=== PATIENT | male | born 1945 | race Caucasian/White ===

== ENCOUNTER → 2021-12-16 | Outpatient (CLI) | payer MEDICARE, SELFPAY ==
[2021-12-16 12:28] LABS: Absolute Lymphocyte Count 1.43 X10^3/uL (0.83-4.51); Absolute Neutrophil Count 2.8 X10^3/uL (2.0-7.7); Basophil# 0.07 X10^3/uL; Basophil% 1.5 % (0-1); Eosinophil# 0.06 X10^3/uL; Eosinophils% 1.3 % (0-5); Hemoglobin 12.9 g/dL (13.0-16.5); Lymphocyte # 1.43 X10^3/ul (0.83-4.51); Mean Corp Hgb Conc 32.3 g/dL (32-36); Mean Platelet Vol. 9.9 fl (6.2-12.0); Monocyte# 0.45 X10^3/uL; Monocyte% 9.4 % (0-10); NRBC Flagged by Analyzer 0 % (0-5); Neutrophil # 2.75 X10^3/uL (2.7-7.7); Neutrophil % 57.6 % (47-70); Platelet Count 230 K/mm3 (150-450); RBC Distribution Width CV 13.9 % (11.6-14.6); RBC Distribution Width SD 47.3 fl (35.1-43.9); White Blood Count 4.8 K/mm3 (4.4-11.0)
[2021-12-16 12:35] LABS: Color, Urine Yellow (Yellow); Glucose, Dipstick Normal (Normal); Ketone-Dipstick 5 mg/dl (Negative); Leukocyte Esterase-Dipstick 25 /ul (Negative); Nitrite-Dipstick Negative (Negative); Occult Blood-Urine 150 /ul (Negative); Protein-Dipstick 30 mg/dl (Negative); Urine Bilirubin Dipstick Negative (Negative); Urine Clarity Sl. Cloudy (Clear); Urine Urobilinogen 1 mg/dl (Normal)
[2021-12-16 12:41] LABS: AST(SGOT) 21 U/L (15-37); Alanine Aminotransfer ALT/SGPT 17 U/L (16-61); Albumin, Serum 3.7 g/dL (3.2-5.0); Alkaline Phosphatase 60 U/L (45-117); Anion Gap 5 (5-15); BUN 27 mg/dL (7-18); BUN/Creat Ratio 22.7 RATIO (10-20); Chloride 107 mmol/L (98-107); Creatinine, Serum 1.19 mg/dL (0.70-1.30); EST Glomerular Filtration Rate 63 mL/min (>60); Est Glom Filt Rate - Afr Amer 76 mL/min (>60); Globulin 3.6 g/dL (2.2-4.2); Glucose 101 mg/dL (74-106); Protein, Total 7.3 g/dL (6.4-8.2); Sodium Level 141 mmol/L (136-145)
== END | disposition home or self-care (01) ==
PROVIDERS: Referring Provider Physician Assistant; Visit Provider Physician Assistant
DX: L30.9 Dermatitis, unspecified (principal); L60.3 Nail dystrophy
CPT/HCPCS: 36415; 80053; 81002; 85025

== ENCOUNTER 2023-12-12 17:59 | Observation (INO) | payer MEDICARE, SELFPAY ==
[2023-12-12 18:00] VITALS: BP 152/76; PULSE 68; RESP 16; TEMP 36.8; O2SAT 100
[2023-12-12 18:06] VITALS: BMI 20.2
--- NOTE | 2023-12-12 18:28 | EDS_ITS ---
HPI History of Present Illness Chief Complaint: Confusion Informant: patient Onset/Context/Timing Onset: Today Current Severity: Mild Maximum Severity: Mild Narrative Narrative: 78-year-old male who denies any past medical history. Currently there is no one with him. There is no family here. I attempted to contact his daughter via her cell phone and have been unsuccessful so far. No one has picked up the phone. Reportedly per squad the patient was sent in for mental status change. Daughter was concerned he might have urinary tract infection. Patient is currently denying any complaints. Prior similar symptoms: Yes Recent Illness/Hospitalization: No PFSH PFSH Home Medications NK 12/12/23 [History Last Taken Unknown] Allergy/AdvReac Type Severity Reaction Status Date / Time No Known Allergies Allergy Verified 12/12/23 18:06 Social History Smoking Status: Former smoker ROS ROS ED ROS Narrative Patient denies recent illness. States that he does urinate frequently but that it is not new. Review of Systems ROS Unobtainable: Denies due to encephalopathy Constitutional Constitutional ED: Denies chills or fever(s) Eyes Eyes: Denies blurry vision ENT ENT ED: Denies ear pain Cardiovascular Cardiovascular: Denies chest pain Respiratory/Chest Respiratory/Chest: Denies cough or dyspnea Gastrointestinal Gastrointestinal: Denies abdominal pain, diarrhea, melena or nausea Genitourinary Genitourinary ED: Reports urinary frequency; Denies dysuria or hematuria Musculoskeletal Musculoskeletal: Denies arthralgias, back pain or myalgias Integumentary Denies abscess Neurologic Neurologic: Denies headache(s) Psychiatric Psychiatric: Denies anxiety Endocrine Endocrinology: Denies cold intolerance Hematologic/Lymphatic Hematologic/Lymphatic: Reports none Allergic/Immunologic Allergic/Immunologic ED: Denies mouth swelling or tongue swelling EXAM Physical Exam Narrative Exam Narrative: 78-year-old male vital signs stable afebrile. He does not look septic toxic. He is in no distress. No family present in room. H EENT exam unremarkable. Neck nontender. Lungs clear to auscultation bilaterally. Heart regular rhythm rate about 70 no murmur. Chest wall ribs nontender. Abdomen soft nontender. Nondistended. No peritoneal signs. Moving all 4 extremities. Nontender. No edema. He has a lesion on his left lower leg it has been there for some time. Is a growth. Back nontender. Neurologically is awake. He is alert. He is answering questions following commands. He does know he is at this particular hospital. He knows month and year. He knows the current president. Const Vital Signs: 12/12/23 18:00 12/12/23 19:59 12/12/23 21:00 Temperature 98.3 F Temperature Source Oral Pulse Rate 68 70 57 L Respiratory Rate 16 22 H 15 Blood Pressure 152/76 H 147/72 H 133/74 H Blood Pressure Mean 101 97 93 Pulse Ox 100 100 99 Oxygen Delivery Method Room Air Room Air Room Air Positive well nourished and well developed; Negative for obese, cachectic or contractures General Appearance ED: well developed and NAD; Negative for cachectic, contractures, cyanotic, diaphoretic or pallor Nutritional Appearance: Negative for cachectic or obese HEENT Reports moist mucous membranes Negative for trauma or tenderness Eyes PERRL and EOMs intact bilaterally General Eye ED: Negative for pale conjunctiva or scleral icterus Neck no lymphadenopathy, supple and no JVD General: Negative for tenderness Lymph Lymphatic: Negative for other Chest Wall inspection of chest normal and palpation of chest normal Resp normal respiratory effort and clear to auscultation bilaterally Effort and Inspection: Negative for retractions Auscultation: Negative for rales, rhonchi, wheezes or diminished lung sounds Cardio regular rate, regular rhythm, S1 normal heart sound, S2 normal heart sound and no murmurs Palpation: Negative for palpable S3 or palpable S4 Rate: Negative for bradycardia or tachycardic Rhythm: Negative for abnormal rhythm GI normal to inspection, nondistended, normoactive bowel sounds, non-tender, non- distended and no masses Inspection: Negative for abdominal distention Auscultation: normoactive bowel sounds Palpation: soft; Negative for tender, guarding, mass or rebound tenderness present Back/Spine no CVA tenderness General Back: Negative for CVA tenderness Cervical Spine: Negative for cervical spine tenderness Thoracic Spine / Upper Back: Negative for thoracic spinal tenderness Lumbar Spine / Lower Back: Negative for lumbar spinal tenderness Extremity Negative for normal to inspection Extremity Narrative: Unkempt lower extremities and nails. Skin growth left lower leg. General Extremety ED: Negative for edema or tenderness General Extremity: Negative for edema Neuro oriented x3 and CN's II-XII intact bilaterally Sensorium / Orientation: alert; Negative for orientation impaired, lethargic or stuporous Motor Exam: strength 5/5 throughout Psych mental status grossly normal Appearance: Negative for other Attitude: No agitated Mood & Affect: Negative for depressed, anxious or tearful Skin no rashes or lesions noted and no wounds General Skin Exam: Negative for jaundice or pallor Lesions: lesion noted Rashes: No rashes noted Trauma: Negative for abrasion Wounds: Negative for wounds noted MDM MDM MDM Narrative Medical decision making narrative: 78-year-old male from home reportedly change in mental status daughter is concerned he may have a UTI per the squad. I have attempted but have so far been unable to speak with family. There is no one present in the ER with the patient currently. Screening labs and UA will be obtained. Repeat exam unchanged at 10 PM. And 1040. Spoke to the patient's son and daughter are now present emergency room. He said the house is a mess and needs to be cleaned up. The daughter lives with him but does not believe that she will be living with them any longer. He said he cannot take care of himself. It would like him admitted for failure to thrive and further evaluation. I have the hospitalist on page. Lab Data Attestation: I reviewed the patient's lab results. Lab results narrative: CBC shows white count of 5. H&H 11.9 and 36.7. Electrolytes show a gap of 2. BUN and creatinine 29 and 1.2. Glucose 100. Lactic acid is normal at 0.9. Liver enzymes normal. UA negative. No nitrates. Only 5-10 red cells. No white cells and no bacte buffy. Labs: Laboratory Results - last 24 hr 12/12/23 12/12/23 18:33 18:48 WBC 5.3 RBC 4.00 L Hgb 11.9 L Hct 36.7 L MCV 91.8 MCH 29.8 MCHC 32.4 RDW Std Deviation 48.5 H RDW Coeff of Mili 14.3 Plt Count 218 MPV 9.0 Immature Gran % (Auto) 0.200 Neut % (Auto) 53.9 Lymph % (Auto) 32.9 [place] % (Auto) 10.8 H Eos % (Auto) 1.1 Baso % (Auto) 1.1 H Absolute Neuts (auto) 2.8 Absolute Lymphs (auto) 1.73 Nucleated RBC % 0 Sodium 138 Potassium 4.5 Chloride 107 Carbon Dioxide 29.0 Anion Gap 2 L BUN 29 H Creatinine 1.27 Estim Creat Clear Calc 44.03 Est GFR (MDRD) Af Amer 70 Est GFR (MDRD) Non-Af 58 L BUN/Creatinine Ratio 22.8 H Glucose 100 Lactic Acid 0.9 Calcium 8.7 Total Bilirubin 0.30 AST 20 ALT 14 L Alkaline Phosphatase 72 Total Protein 6.9 Albumin 3.5 Globulin 3.4 Albumin/Globulin Ratio 1.0 Urine Color Yellow Urine Clarity Clear Urine pH 6.5 Ur Specific [place] 1.015 Urine Protein 15 H Urine Glucose (UA) Normal Urine Ketones 5 H Urine Occult Blood 50 H Urine Nitrite Negative Urine Bilirubin Negative Urine Urobilinogen Normal Ur Leukocyte Esterase 25 H Urine RBC 5-10 SEEN Urine WBC 0 SEEN Ur Squamous Epith Cells 0 SEEN Urine Bacteria 0 SEEN Urine Mucus 0 SEEN Radiography Chest X-Ray - ED: 1 View, Read by ED Physician, Read by Radiologist, Normal, Heart, Mediastinum, Bony Structures, Chronic Changes, Cardiomegaly and - (Questionable left upper lobe mass versus pneumonia. CAT scan being obtained.) Diagnostic Testing: Clinical Impression(s) from Imaging Studies Chest X-Ray 12/12/23 19:00 IMPRESSION: Possible left upper lobe pneumonia or mass and correlation with CT the chest with contrast would be useful. Electronically Signed: River Narayanan MD at 19:11 EDT , Chest x-ray, portable, single view interpreted both by myself and the radiologist. Shows a normal cardiac silhouette. Normal lung clay except for possible left upper lobe abnormality such as mass, pneumonia or it may be bony a bnormality superimposed. CAT scans being obtained to further evaluate. Discharge Plan Triage Chief Complaint: Confusion ED Provider: Anthony Clark Dx/Rx/DC Orders Prescriptions: No Action NK Primary Care Provider: Care Physician,No Primary Referrals: Care Physician,No Primary [Primary Care Provider] -
[2023-12-12 18:50] LABS: Absolute Lymphocyte Count 1.73 X10^3/uL (0.83-4.51); Absolute Neutrophil Count 2.8 X10^3/uL (2.0-7.7); Basophil# 0.06 X10^3/uL; Basophil% 1.1 % (0-1); Eosinophil# 0.06 X10^3/uL; Eosinophils% 1.1 % (0-5); Hematocrit 36.7 % (40-54); Hemoglobin 11.9 g/dL (13.0-16.5); Lymphocyte # 1.73 X10^3/ul (0.83-4.51); Lymphocyte % 32.9 % (19-41); Mean Corp Hgb Conc 32.4 g/dL (32-36); Mean Corpuscular Hgb 29.8 pg (27.0-32.0); Mean Corpuscular Volume 91.8 fL (80-94); Monocyte# 0.57 X10^3/uL; Monocyte% 10.8 % (0-10); NRBC Flagged by Analyzer 0 % (0-5); Neutrophil # 2.83 X10^3/uL (2.7-7.7); Neutrophil % 53.9 % (47-70); Platelet Count 218 K/mm3 (150-450); RBC Distribution Width CV 14.3 % (11.6-14.6); RBC Distribution Width SD 48.5 fl (35.1-43.9); White Blood Count 5.3 K/mm3 (4.4-11.0)
[2023-12-12 18:52] LABS: Bacteria 0 SEEN /hpf (None Seen); Mucous, Urine 0 SEEN /hpf (<or=2+); Squamous Epithelial Cells - UA 0 SEEN /hpf (0-5); White Blood Cells 0 SEEN /hpf (0-5)
[2023-12-12 18:56] LABS: Color, Urine Yellow (Yellow); Glucose, Dipstick Normal (Normal); Ketone-Dipstick 5 mg/dl (Negative); Leukocyte Esterase-Dipstick 25 /ul (Negative); Nitrite-Dipstick Negative (Negative); Occult Blood-Urine 50 /ul (Negative); Protein-Dipstick 15 mg/dl (Negative); Specific Gravity, Urine 1.015 (1.002-1.030); Urine Bilirubin Dipstick Negative (Negative); Urine Clarity Clear (Clear); Urine Urobilinogen Normal (Normal); Urine pH 6.5 (5.0 - 8.0)
[2023-12-12] MEDS: 0.9% Normal Saline (1000mL) 1,000 ML 1000 ML IV (18:56)
--- NOTE | 2023-12-12 19:00 | RAD_ITS ---
STUDY: X-RAY CHEST REASON FOR EXAM: Male, 78 years old. WEAKNESS TECHNIQUE: Single AP portable view of the chest. COMPARISON: None. FINDINGS: 6 cm oval opacity in the mid left lung which may or may not be calcified and may represent pneumonia or mass. Correlation with CT the chest with contrast may be useful. There is no demonstrated pleural abnormality. Normal size heart. Normal mediastinum and sophia. Normal visualized pulmonary arteries. Normal visualized aortic arch and descending thoracic aorta. Normal visualized thoracic spine. Normal visualized ribs, clavicles, and shoulders. There is no demonstrated abnormality of the visualized soft tissue structures of the upper abdomen. RAD/Chest 1 View (Portable) IMPRESSION: Possible left upper lobe pneumonia or mass and correlation with CT the chest with contrast would be useful. Electronically Signed: River Narayanan MD at 19:11 EDT ,
[2023-12-12 19:06] LABS: Red Blood Cells-Urine 5-10 SEEN /hpf (0-5)
[2023-12-12 19:10] LABS: AST(SGOT) 20 U/L (15-37); Alanine Aminotransfer ALT/SGPT 14 U/L (16-61); Albumin, Serum 3.5 g/dL (3.2-5.0); Alkaline Phosphatase 72 U/L (45-117); Anion Gap 2 (5-15); BUN 29 mg/dL (7-18); BUN/Creat Ratio 22.8 RATIO (10-20); Calcium,Total 8.7 mg/dL (8.5-10.1); Chloride 107 mmol/L (98-107); Creatinine, Serum 1.27 mg/dL (0.70-1.30); EST Glomerular Filtration Rate 58 mL/min (>60); Est Glom Filt Rate - Afr Amer 70 mL/min (>60); Estimated Creatinine Clearance 44.03 ml/min; Globulin 3.4 g/dL (2.2-4.2); Glucose 100 mg/dL (74-106); Potassium 4.5 mmol/L (3.5-5.1); Protein, Total 6.9 g/dL (6.4-8.2); Sodium Level 138 mmol/L (136-145)
[2023-12-12 19:22] LABS: Lactic Acid 0.9 mmol/L (0.4-1.9)
[2023-12-12 19:59] VITALS: BP 147/72; PULSE 70; RESP 22; O2SAT 100
[2023-12-12 21:00] VITALS: BP 133/74; PULSE 57; RESP 15; O2SAT 99
--- NOTE | 2023-12-12 21:24 | CT_ITS ---
INDICATION: left sided lung mass EXAMINATION: CT CHEST WITH CONTRAST - CT Chest W/ Contrast Injection TECHNIQUE: Helically acquired images were obtained of the chest following IV contrast. A radiation dose optimization technique was used for this scan. IV Contrast dosage and agent: COMPARISON: Chest x-ray earlier today FINDINGS: LUNGS, PLEURA AND LARGE AIRWAYS: Mild bilateral apical scarring. 4 mm noncalcified nodule in the anterior left lower lobe lungs adjacent to the major fissure consistent with a perifissural lymph node. No other noncalcified nodule or mass. There are left-sided calcified pleural plaques including a large one anterior to the left upper lobe corresponding to the opacity seen on chest x-ray and likely from prior hemothorax. No pneumothorax. THYROID: No thyroid lesions. HEART AND PERICARDIUM: Heart size is normal. No pericardial effusion. VESSELS: Thoracic aorta is not dilated. No aortic dissection. No obvious central pulmonary embolism although this study was not performed with the pulmonary embolism protocol. MEDIASTINUM AND DANIELLE: No mediastinal or hilar adenopathy. Esophagus is unremarkable. No hiatal hernia. UPPER ABDOMEN: No acute pathology. BONES: Degenerative disc disease lower thoracic spine. CT/Chest WITH Contrast IMPRESSION: Left-sided calcified pleural plaques corresponding to the opacity seen on chest x-ray. No active disease. Electronically Signed: River Narayanan MD at 22:44 EDT ,
--- NOTE | 2023-12-12 22:42 | HP.PCM.HOS_ITS ---
HPI - General General Date of Admission: 12/12/23 Date of Service: 12/12/23 Chief Complaint: Spells of Confusion. HPI Narrative BALDEMAR REGALADO, is a 78 M with a past medical history of tobacco abuse, history of medical avoidance and a chronic mass on his LLE who presents to [facility] ER because apparently is no longer able to deal with him at home and he is having intermittent spells of confusion. Mr. Regalado's son and daughter accompanied him to the ER and informed the ER physician that they can no longer manage him in his home environment. The patient is not confused at this time but apparently he has intermittent bouts of confusion and has not seen a doctor for years and unfortunately is allegedly in unsafe and unclean living conditions at this time and they are seeking for possible ECF placement. He does admit to involuntarily losing approximately ~60 pounds There is no report of fever, chills, nausea or vomiting but he does have a chronic growth on his Left calf that is large but not acutely infected. In the ER he underwent a chest x-ray that revealed questionable changes for left upper lobe mass versus infiltrate with CT of the chest pending at this time. He was then at admitted to the general medical floor under observation status for stay that expected to be less than 2 midnights. [facility] Home Medications NK 12/12/23 [History Last Taken Unknown] Allergy/AdvReac Type Severity Reaction Status Date / Time No Known Allergies Allergy Verified 12/12/23 18:06 Social History Smoking Status: Former smoker ROS ROS Narrative Review of systems: General: Patient denies fever or chills. HENT: Denies headache, denies stuffy nose, denies sore throat EYES: Denies changes in vision or discharge from eyes. Resp: Denies cough, denies shortness of breath Cardiac: Denies chest pain, palpitations or heart racing. GI: Denies abdominal pain, denies changes in bowel, denies nausea or vomiting. : Patient admits to chronic frequent urination unchanged from previous. Extremity: Patient has a chronic growth on his left calf that is large but unchanged from previous and not acutely infected or painful. Musculoskeletal: Patient denies arthralgias or myalgias. Neuro: Patient denies headache, paresthesias or focal neurologic weakness. Heme: Denies any bleeding or bruising Skin: Denies rashes Psychiatric: No complaints voiced related uncontrolled depression or anxiety. Endocrine: No polyuria, polydipsia or polyphagia. The rest of the 14 point ROS was negative except for positives in HPI. Vital Signs Vital Signs Vital Signs: 12/12/23 18:00 12/12/23 19:59 12/12/23 21:00 Temperature 98.3 F Temperature Source Oral Pulse Rate 68 70 57 L Respiratory Rate 16 22 H 15 Blood Pressure 152/76 H 147/72 H 133/74 H Blood Pressure Mean 101 97 93 Pulse Ox 100 100 99 Oxygen Delivery Method Room Air Room Air Room Air Weight Weight: 145 lb 8.081 oz Body Mass Index (BMI) 20.2 Physical Exam Const alert, oriented x3, no apparent distress and average body habitus Constitutional Narrative: Patient appears unkempt. General Appearance: cooperative HEENT normocephalic, head/scalp atraumatic, hearing grossly normal bilaterally and moist oral mucous membranes Eyes PERRL and EOMs intact bilaterally Neck no lymphadenopathy and supple Resp normal respiratory effort, no retractions, no use of accessory muscles and clear to auscultation bilaterally Cardio regular rate and regular rhythm GI normal to inspection, nondistended, normoactive bowel sounds, soft to palpation, non-tender and non-distended Extremity Extremity Narrative: Patient has a large lesion on his Left lower leg that does not appear to be acutely infected. Skin Skin Narrative: Patient has a large lesion on his Left lower leg that does not appear to be acutely infected. Neuro oriented x3, CN's II-XII intact bilaterally, moves all extremities and no focal motor deficits Sensorium / Orientation: awake, alert, oriented to person, oriented to place and oriented to time Speech: speech normal Motor Exam: strength 5/5 throughout Psych affect normal Results Medical Records Data Attestation: I reviewed the patient's medical records Lab / Micro Data Attestation: I reviewed the patient's lab results. 12/13/23 03:05 12/13/23 03:05 Labs: Laboratory Results - last 24 hr 12/12/23 18:33: WBC 5.3, RBC 4.00 L, Hgb 11.9 L, Hct 36.7 L, MCV 91.8, MCH 29.8, MCHC 32.4, RDW Std Deviation 48.5 H, RDW Coeff of Mili 14.3, Plt Count 218, MPV 9.0, Immature Gran % (Auto) 0.200, Neut % (Auto) 53.9, Lymph % (Auto) 32.9, [place] % (Auto) 10.8 H, Eos % (Auto) 1.1, Baso % (Auto) 1.1 H, Absolute Neuts (auto) 2.8, Absolute Lymphs (auto) 1.73, Nucleated RBC % 0, Sodium 138, Potassium 4.5, Chloride 107, Carbon Dioxide 29.0, Anion Gap 2 L, BUN 29 H, Creatinine 1.27, Estim Creat Clear Calc 44.03, Est GFR (MDRD) Af Amer 70, Est GFR (MDRD) Non-Af 58 L, BUN/Creatinine Ratio 22.8 H, Glucose 100, Lactic Acid 0.9, Calcium 8.7, Total Bilirubin 0.30, AST 20, ALT 14 L, Alkaline Phosphatase 72, Total Protein 6.9, Albumin 3.5, Globulin 3.4, Albumin/Globulin Ratio 1.0 12/12/23 18:48: Urine Color Yellow, Urine Clarity Clear, Urine pH 6.5, Ur Specific [place] 1.015, Urine Protein 15 H, Urine Glucose (UA) Normal, Urine Ketones 5 H, Urine Occult Blood 50 H, Urine Nitrite Negative, Urine Bilirubin Negative, Urine Urobilinogen Normal, Ur Leukocyte Esterase 25 H, Urine RBC 5-10 SEEN, Urine WBC 0 SEEN, Ur Squamous Epith Cells 0 SEEN, Urine Bacteria 0 SEEN, Urine Mucus 0 SEEN Imaging Radiology Impression Chest X-Ray 12/12/23 19:00 IMPRESSION: Possible left upper lobe pneumonia or mass and correlation with CT the chest with contrast would be useful. Electronically Signed: River Narayanan MD at 19:11 EDT , Assessment & Plan Assessment/Plan (1) Mass of left lower leg: (2) Weight loss, abnormal: (3) Intermittent confusion: (4) Tobacco abuse: PLAN: Plan 1. 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 Check CT scan of the LLE to evaluate precise size and depth of mass and then consult general surgery to see this patient on-rounds in the AM for further recommendations regarding possible options for excision with help appreciated in advance. 2. Family can no longer manage this patient at home with reports of intermittent spells of confusion and unclean living conditions - Check TSH, B12, folate, JOSÉ and UDS to evaluate for reversible causes of confusion. Give Tylenol as needed pain or fever. Finally, PT/OT and case management will be consulted see this patient on rounds in the a.m. for further recommendations regarding placement with help appreciated in advance. 2. Tobacco abuse - Tobacco cessation will be strongly encouraged with nicotine patch offered to control cravings. 3. History of medical noncompliance - Noted. 4. DVT prophylaxis - Lovenox 40 mg subcu daily. Total time: Approximately 45 minutes. Charges/Coding Visit Charges OBSV E&M: 35249 Observ/hosp same date L1
[2023-12-12 22:58] VITALS: BP 144/71; PULSE 55; RESP 17; TEMP 36.9; O2SAT 99
[2023-12-12 23:30] VITALS: BP 133/71; PULSE 57; RESP 16; TEMP 36.9; O2SAT 99
[2023-12-12 23:39] VITALS: BMI 19.9
[2023-12-13] MEDS: 0.9% Normal Saline (1000mL) 1,000 ML 70 ML IV ×2 (00:30→13:36)
[2023-12-13 03:33] LABS: Absolute Lymphocyte Count 1.74 X10^3/uL (0.83-4.51); Absolute Neutrophil Count 3.4 X10^3/uL (2.0-7.7); Basophil# 0.04 X10^3/uL; Basophil% 0.7 % (0-1); Eosinophil# 0.11 X10^3/uL; Eosinophils% 1.9 % (0-5); Hematocrit 36.5 % (40-54); Hemoglobin 11.7 g/dL (13.0-16.5); Lymphocyte # 1.74 X10^3/ul (0.83-4.51); Lymphocyte % 29.3 % (19-41); Mean Corp Hgb Conc 32.1 g/dL (32-36); Mean Corpuscular Hgb 29.5 pg (27.0-32.0); Mean Corpuscular Volume 92.2 fL (80-94); Mean Platelet Vol. 9.5 fl (6.2-12.0); Monocyte# 0.63 X10^3/uL; Monocyte% 10.6 % (0-10); NRBC Flagged by Analyzer 0 % (0-5); Neutrophil # 3.41 X10^3/uL (2.7-7.7); Neutrophil % 57.3 % (47-70); Platelet Count 215 K/mm3 (150-450); RBC Distribution Width CV 14.2 % (11.6-14.6); RBC Distribution Width SD 48.6 fl (35.1-43.9); Red Blood Count 3.96 M/mm3 (4.6-6.2); White Blood Count 5.9 K/mm3 (4.4-11.0)
--- NOTE | 2023-12-13 03:39 | CT_ITS ---
EXAM: CT Lower Extremity W/O Contrast Injection LEFT HISTORY: Large Mass LARGE LOBULATED MASS LLE,PT THINKS GROWING X 2 YEARS,ADULT FAILURE TO THRIV TECHNIQUE: Axial images obtained from the knee to the ankle without IV contrast. Sagittal and coronal reformats were provided. IV Contrast: None.. RADIATION DOSAGE (If Supplied By Facility): CTDIvol = ( 15.35 ) mGy, DLP = ( 992.48 ) mGycm Individualized dose optimization techniques were used for this CT. COMPARISON: None. LIMITATIONS: None. FINDINGS: Diffuse subcutaneous edema mid calf to the ankle with associated skin thickening. This is most pronounced medially just above the ankle with thick irregularity within the skin versus overlying bandage material. Question if this corresponds to the clinical mass. This area measures approximately 6 x 1.5 cm axial by 13 cm length. There is a smaller similar area along the lateral aspect. No well-defined mass identified. No definite localized collection or abscess. The bones are osteopenic. No lytic lesion or cortical destruction identified. CT/Extremity Lower without Contra IMPRESSION: Diffuse subcutaneous edema with large irregular skin thickening or skin lesion medially versus bandage material. No well-defined mass. MRI may be helpful if clinically indicated. Electronically Signed: Mikayla Schafer MD at 5:45 EDT ,
[2023-12-13 03:46] LABS: Alcohol, Blood (Medical)-Serum < 3.0 mg/dL
[2023-12-13 04:01] LABS: ALB/GLOB Ratio 0.9 RATIO (0.9-2.4); AST(SGOT) 18 U/L (15-37); Alanine Aminotransfer ALT/SGPT 12 U/L (16-61); Albumin, Serum 3.1 g/dL (3.2-5.0); Alkaline Phosphatase 58 U/L (45-117); Anion Gap 5 (5-15); BUN 20 mg/dL (7-18); BUN/Creat Ratio 20.4 RATIO (10-20); Calcium,Total 8.3 mg/dL (8.5-10.1); Chloride 110 mmol/L (98-107); Creatinine, Serum 0.98 mg/dL (0.70-1.30); EST Glomerular Filtration Rate 79 mL/min (>60); Est Glom Filt Rate - Afr Amer 95 mL/min (>60); Estimated Creatinine Clearance 55.76 ml/min; Globulin 3.3 g/dL (2.2-4.2); Glucose 95 mg/dL (74-106); Magnesium 2.3 mg/dL (1.6-2.6); Phosphorus 2.5 mg/dL (2.5-4.9); Potassium 3.8 mmol/L (3.5-5.1); Protein, Total 6.4 g/dL (6.4-8.2); Sodium Level 141 mmol/L (136-145); Thyroid Stim Hormone (TSH) 2.83 uIU/mL (0.358-3.74)
[2023-12-13 04:46] VITALS: BP 144/75; PULSE 53; RESP 16; TEMP 36.6; O2SAT 100
[2023-12-13 06:00] VITALS: BMI 19.8
--- NOTE | 2023-12-13 07:53 | PN.HOSP_ITS ---
Reason for Visit Reason for Visit: Diagnoses Localized swelling, mass and lump, left lower limb (12/12/23) Disorientation, unspecified (12/12/23) Abnormal weight loss (12/12/23) Tobacco use (12/12/23) Objective Data Objective Data Vital Signs: Vital Signs Temp Pulse Resp BP Pulse Ox O2 Del Method 97.9 F 53 L 16 144/75 H 100 Room Air 12/13/23 04:46 12/13/23 04:46 12/13/23 04:46 12/13/23 04:46 12/13/23 04:46 12/13/23 04:46 Oxygen Delivery Method Room Air Weight: 141 lb 15.643 oz Body Mass Index (BMI) 19.8 Intake & Output: Intake and Output for Last 24 Hours 12/11/23 12/12/23 12/13/23 23:59 23:59 23:59 Intake Total 1000 / 1000 Output Total 150 / 150 Balance 1000 / 1000 -150 / -150 Lab / Micro Data 12/13/23 03:05 12/13/23 03:05 Labs: Laboratory Results - last 24 hr 12/12/23 18:33: WBC 5.3, RBC 4.00 L, Hgb 11.9 L, Hct 36.7 L, MCV 91.8, MCH 29.8, MCHC 32.4, RDW Std Deviation 48.5 H, RDW Coeff of Mili 14.3, Plt Count 218, MPV 9.0, Immature Gran % (Auto) 0.200, Neut % (Auto) 53.9, Lymph % (Auto) 32.9, [place] % (Auto) 10.8 H, Eos % (Auto) 1.1, Baso % (Auto) 1.1 H, Absolute Neuts (auto) 2.8, Absolute Lymphs (auto) 1.73, Nucleated RBC % 0, Sodium 138, Potassium 4.5, Chloride 107, Carbon Dioxide 29.0, Anion Gap 2 L, BUN 29 H, Creatinine 1.27, Estim Creat Clear Calc 44.03, Est GFR (MDRD) Af Amer 70, Est GFR (MDRD) Non-Af 58 L, BUN/Creatinine Ratio 22.8 H, Glucose 100, Lactic Acid 0.9, Calcium 8.7, Total Bilirubin 0.30, AST 20, ALT 14 L, Alkaline Phosphatase 72, Total Protein 6.9, Albumin 3.5, Globulin 3.4, Albumin/Globulin Ratio 1.0, Folate 12.20 12/12/23 18:48: Urine Color Yellow, Urine Clarity Clear, Urine pH 6.5, Ur Specific [place] 1.015, Urine Protein 15 H, Urine Glucose (UA) Normal, Urine Ketones 5 H, Urine Occult Blood 50 H, Urine Nitrite Negative, Urine Bilirubin Negative, Urine Urobilinogen Normal, Ur Leukocyte Esterase 25 H, Urine RBC 5-10 SEEN, Urine WBC 0 SEEN, Ur Squamous Epith Cells 0 SEEN, Urine Bacteria 0 SEEN, Urine Mucus 0 SEEN 12/13/23 03:05: WBC 5.9, RBC 3.96 L, Hgb 11.7 L, Hct 36.5 L, MCV 92.2, MCH 29.5, MCHC 32.1, RDW Std Deviation 48.6 H, RDW Coeff of Mili 14.2, Plt Count 215, MPV 9.5, Immature Gran % (Auto) 0.200, Neut % (Auto) 57.3, Lymph % (Auto) 29.3, [place] % (Auto) 10.6 H, Eos % (Auto) 1.9, Baso % (Auto) 0.7, Absolute Neuts (auto) 3.4, Absolute Lymphs (auto) 1.74, Nucleated RBC % 0, Sodium 141, Potassium 3.8, Chloride 110 H, Carbon Dioxide 26.0, Anion Gap 5, BUN 20 H, Creatinine 0.98, Estim Creat Clear Calc 55.76, Est GFR (MDRD) Af Amer 95, Est GFR (MDRD) Non-Af 79, BUN/Creatinine Ratio 20.4 H, Glucose 95, Calcium 8.3 L, Phosphorus 2.5, Magnesium 2.3, Total Bilirubin 0.40, AST 18, ALT 12 L, Alkaline Phosphatase 58, Total Protein 6.4, Albumin 3.1 L, Globulin 3.3, Albumin/Globulin Ratio 0.9, TSH 2.83, Ethyl Alcohol < 3.0 Radiography Diagnostic Testing: Radiology Impression Chest X-Ray 12/12/23 19:00 IMPRESSION: Possible left upper lobe pneumonia or mass and correlation with CT the chest with contrast would be useful. Electronically Signed: River Narayanan MD at 19:11 EDT , Chest CT 12/12/23 21:24 IMPRESSION: Left-sided calcified pleural plaques corresponding to the opacity seen on chest x-ray. No active disease. Electronically Signed: River Narayanan MD at 22:44 EDT , Lower Extremity CT 12/13/23 03:39 IMPRESSION: Diffuse subcutaneous edema with large irregular skin thickening or skin lesion medially versus bandage material. No well-defined mass. MRI may be helpful if clinically indicated. Electronically Signed: Mikayla Schafer MD at 5:45 EDT , Physical Exam Narrative Patient has a large lesion on his Left lower leg that does not appear to be acutely infected. Assessment & Plan Assessment/Plan (1) Mass of left lower leg: (2) Weight loss, abnormal: (3) Intermittent confusion: (4) Tobacco abuse: PLAN: Plan 1. Large irregular subcutaneous thick chronic lesion on LLE suspicious for malignancy with involuntary ~60# weight loss over the past few months: Patient is being admitted on MedSurg floor. Has not seek attention to left lower extremity subcutaneous lesions/mass which has been there for at least more than [address] of left lower extremity without IV contrast reviewed. It shows diffuse subcutaneous edema with large irregular skin thickening medially from mid calf to ankle region. Bones are osteopenic but no lytic or cortical destruction. No well-defined mass. Overall it seems the skin hypertrophy/subcutaneous fungal/chronic bacterial infection. Patient was evaluated by surgery and, exam not consistent with cutaneous malignancy but possible chronic inflammatory condition including lipodermatosclerosis. ID consult requested for tomorrow morning to rule out any chronic infection 2. Intermittent confusion and unhygienic condition at home/inability to take care himself: No specific reversible cause of confusion found in patient here alert and awake oriented x 3. Give Tylenol as needed pain or fever. PT and OT and caseworker protective services consulted for necessary help TSH normal. B12 pending. Folate normal. Glucose in normal range. 2. Tobacco abuse - Tobacco cessation will be strongly encouraged with nicotine patch offered to control cravings. 3. History of medical noncompliance - Noted. 4. DVT prophylaxis - Lovenox 40 mg subcu daily. Total time: Approximately 45 minutes. Charges/Coding Visit Charges Inpatient E&M: 97697 Subs Hosp L2
[2023-12-13 08:00] VITALS: BP 138/80; PULSE 63; RESP 16; TEMP 37; O2SAT 100
--- NOTE | 2023-12-13 11:31 | CON.PCM.SX_ITS ---
Assessment & Plan Assessment/Plan (1) Mass of left lower leg: PLAN: Patient is a 78-year-old unkempt male who presents for SNF placement after family is unable to care for him at home. Surgery has been asked to evaluate for possible mass of the left lower extremity. By exam patient has evidence of a chronic skin condition to the medial aspect of his left lower extremity not consistent with a cutaneous malignancy. Differential would include lipodermatosclerosis versus lichen planus versus other. No mass lesion was seen by radiology on CT and in my independent review of patient's CT imaging I confirmed this interpretation. Would recommend outpatient follow-up with dermatology as well as consideration of outpatient follow-up with podiatry for possible plantar wart and nail care. Based on above, do not find a cause for surgical intervention. Appreciate the opportunity to partake in patient's care. Corbin Simpson MD General Surgery Endocrine Surgery Pager: [facility] [address] [place] [address], [address] [place] [address] Office: [phone] HPI Consult Data Date of Consult: 12/13/23 HPI Narrative Reason for Consultation: Possible mass of left lower extremity HPI Narrative: BALDEMAR REGALADO, is a 78 M who presented to [facility] with his family last evening due to observations of persistent confusion and inability of family to care for Mr. Regalado at home. During his intake he was also noted to have described a 60 to 70 pound unintentional weight loss and on exam there was concern for a fungating left lower extremity mass. It is for this latter issue that surgery was consulted. In the interim patient underwent CT imaging of the left lower extremity and radiology was unable to discern any clear mass. Patient states today that his confusion is improved. He shares that his left lower extremity was previously evaluated by dermatology. He shares that he was instructed to have the area wrapped once a day and apply a unspecified lotion twice daily. He confesses that he did not carry through with these recommendations. He denies any significant discomfort from the area in question but does report pain when walking on a particular area on the bottom of his left foot. [facility] Home Medications NK 12/12/23 [History Last Taken Unknown] Allergy/AdvReac Type Severity Reaction Status Date / Time No Known Allergies Allergy Verified 12/12/23 18:06 Social History Smoking Status: Former smoker Physical Exam Const alert and oriented x3 Constitutional Narrative: Appears disheveled and unkept. Patient is underweight. HEENT HEENT Narrative: Numerous plaques across the scalp consistent with moles or actinic keratosis. Resp normal respiratory effort Extremity Extremity Narrative: Bilateral lower extremities are examined. Patient is motor or sensory intact. I am able to palpate bilateral femoral pulses as well as bilateral anterior tibial pulses on the dorsal aspect of each foot. Medially in the gaiter distribution of the left lower extremity there is daniel to purplish colored skin with a rough appearance suggestive of a lipodermatosclerosis or other chronic lesion. No mass lesion is identified. The nails of each foot are long thickened and consistent with chronic onychomycosis. On the plantar aspect of the left foot there is a well-circumscribed area suggestive of a plantar wart. Lab / Micro Data 12/13/23 03:05 12/13/23 03:05 Labs: Laboratory Results - last 24 hr 12/12/23 18:33: WBC 5.3, RBC 4.00 L, Hgb 11.9 L, Hct 36.7 L, MCV 91.8, MCH 29.8, MCHC 32.4, RDW Std Deviation 48.5 H, RDW Coeff of Mili 14.3, Plt Count 218, MPV 9.0, Immature Gran % (Auto) 0.200, Neut % (Auto) 53.9, Lymph % (Auto) 32.9, [place] % (Auto) 10.8 H, Eos % (Auto) 1.1, Baso % (Auto) 1.1 H, Absolute Neuts (auto) 2.8, Absolute Lymphs (auto) 1.73, Nucleated RBC % 0, Sodium 138, Potassium 4.5, Chloride 107, Carbon Dioxide 29.0, Anion Gap 2 L, BUN 29 H, Creatinine 1.27, Estim Creat Clear Calc 44.03, Est GFR (MDRD) Af Amer 70, Est GFR (MDRD) Non-Af 58 L, BUN/Creatinine Ratio 22.8 H, Glucose 100, Lactic Acid 0.9, Calcium 8.7, Total Bilirubin 0.30, AST 20, ALT 14 L, Alkaline Phosphatase 72, Total Protein 6.9, Albumin 3.5, Globulin 3.4, Albumin/Globulin Ratio 1.0, Folate 12.20 12/12/23 18:48: Urine Color Yellow, Urine Clarity Clear, Urine pH 6.5, Ur Specific [place] 1.015, Urine Protein 15 H, Urine Glucose (UA) Normal, Urine Ketones 5 H, Urine Occult Blood 50 H, Urine Nitrite Negative, Urine Bilirubin Negative, Urine Urobilinogen Normal, Ur Leukocyte Esterase 25 H, Urine RBC 5-10 SEEN, Urine WBC 0 SEEN, Ur Squamous Epith Cells 0 SEEN, Urine Bacteria 0 SEEN, Urine Mucus 0 SEEN 12/13/23 03:05: WBC 5.9, RBC 3.96 L, Hgb 11.7 L, Hct 36.5 L, MCV 92.2, MCH 29.5, MCHC 32.1, RDW Std Deviation 48.6 H, RDW Coeff of Mili 14.2, Plt Count 215, MPV 9.5, Immature Gran % (Auto) 0.200, Neut % (Auto) 57.3, Lymph % (Auto) 29.3, [place] % (Auto) 10.6 H, Eos % (Auto) 1.9, Baso % (Auto) 0.7, Absolute Neuts (auto) 3.4, Absolute Lymphs (auto) 1.74, Nucleated RBC % 0, Sodium 141, Potassium 3.8, Chloride 110 H, Carbon Dioxide 26.0, Anion Gap 5, BUN 20 H, Creatinine 0.98, Estim Creat Clear Calc 55.76, Est GFR (MDRD) Af Amer 95, Est GFR (MDRD) Non-Af 79, BUN/Creatinine Ratio 20.4 H, Glucose 95, Calcium 8.3 L, Phosphorus 2.5, Magnesium 2.3, Total Bilirubin 0.40, AST 18, ALT 12 L, Alkaline Phosphatase 58, Total Protein 6.4, Albumin 3.1 L, Globulin 3.3, Albumin/Globulin Ratio 0.9, TSH 2.83, Ethyl Alcohol < 3.0 Imaging Radiology Impression Chest X-Ray 12/12/23 19:00 IMPRESSION: Possible left upper lobe pneumonia or mass and correlation with CT the chest with contrast would be useful. Electronically Signed: River Narayanan MD at 19:11 EDT , Chest CT 12/12/23 21:24 IMPRESSION: Left-sided calcified pleural plaques corresponding to the opacity seen on chest x-ray. No active disease. Electronically Signed: River Narayanan MD at 22:44 EDT , Lower Extremity CT 12/13/23 03:39 IMPRESSION: Diffuse subcutaneous edema with large irregular skin thickening or skin lesion medially versus bandage material. No well-defined mass. MRI may be helpful if clinically indicated. Electronically Signed: Mikayla Schafer MD at 5:45 EDT , Charges/Coding Visit Charges Inpatient E&M: 02438 Init Hosp L2
[2023-12-13] MEDS: Enoxaparin 40 MG/0.4 ML Syringe SC (13:36)
[2023-12-13 20:36] VITALS: BP 131/65; PULSE 68; RESP 18; TEMP 37; O2SAT 99
[2023-12-13] MEDS: Ensure Plus High Protein 120 ML LIQUID PO (20:37)
[2023-12-14 01:34] LABS: Amphetamine Urine VISTA NEGATIVE (<1000 ng/mL); Barbiturate Urine VISTA NEGATIVE (< 200 ng/mL); Benzodiazepine Urine VISTA NEGATIVE (< 200 ng/mL); Cocaine Urine VISTA NEGATIVE (< 300 ng/mL); Ecstacy Urine VISTA NEGATIVE (< 500 ng/mL); Methadone Urine VISTA NEGATIVE (< 300 ng/mL); PCP Urine VISTA NEGATIVE (< 25 ng/mL); THC Urine VISTA NEGATIVE (< 50 ng/mL); Vista UDS pH Range 7
[2023-12-14 03:15] VITALS: BP 146/68; PULSE 54; RESP 18; TEMP 36.7; O2SAT 96
[2023-12-14] MEDS: 0.9% Normal Saline (1000mL) 1,000 ML 70 ML IV ×2 (03:17→16:55)
[2023-12-14 06:00] VITALS: BMI 19.8
[2023-12-14 09:00] VITALS: BP 145/57; PULSE 72; RESP 18; TEMP 36.8; O2SAT 98
[2023-12-14] MEDS: Enoxaparin 40 MG/0.4 ML Syringe SC (09:04)
[2023-12-14] MEDS: Ensure Plus High Protein 120 ML LIQUID PO ×3 (09:09→16:55)
--- NOTE | 2023-12-14 10:21 | CASEMGMT ---
Discharge Planning A list of?SNF providers including quality and resource use data and consistent with the patient's preferred geographic region, medical needs, and insurance network was created in [employer] Guide.? This list was provided to the SW. Aimee Noyola Discharge Planning Asst.
--- NOTE | 2023-12-14 11:45 | CASEMGMT ---
WING CM into pt room, pt sitting up in bed. Pt answered orientation questions correctly. Pt states he lives with his dtr Aimee. Pt was unable to fully complete sentences/thoughts. He did state his dtr was in [place] and she was and needs maternity care. Pt was unable to state what his functional level is at home or who assists. Pt became tearful throughout speaking with him and states he is cleansing his body. Pt reported his son John who lives in [place] is his DPOA and he will be in today after work. Unable to discuss a dc plan with pt. Updated SW who then stated there was a note received to call pt family. SW to follow up.
--- NOTE | 2023-12-14 12:37 | CASEMGMT ---
Social Work SW had a note from weekend staff that family would like to have a meeting, and to call Cleo Fabricio([phone]). She is listed in the demographics as the granddaughter. SW called Cleo. She states John is her father, pt's son. She states to call John at work, and to ask for the factory office. SW called, , then prompt 5. However nobody answered and it went to a nondescript voicemail. Son does not have a cell phone. EMA will try again this afternoon. JOSE G Duarte
--- NOTE | 2023-12-14 13:34 | WOUNDNOTE ---
skin photo: left lower leg
--- NOTE | 2023-12-14 13:35 | WOUNDNOTE ---
skin photo: left lower leg
--- NOTE | 2023-12-14 13:36 | WOUNDNOTE ---
Was asked to see patient for thickened skin to the left lower leg. patient states the nursing staff was able to remove a large portion of the thick dry skin. patient had showered this am and states I didn't realize how much better that would make me feel. Pt denies pain to the legs. toenails are long and thickened to bilateral toes. 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 patient has some discoloration noted to the left medial and left lateral lower leg and foot. lichenification noted. there is no erythema noted. no drainage. there is a small calloused area to the left plantar foot possibly a plantars wart. pt denies pain to the left or foot. washed legs and feet with soap and water. pat dry. applied lotion to the dry skin. will monitor. no open wounds noted.
--- NOTE | 2023-12-14 14:44 | CASEMGMT ---
Social Work SW called pt's son, he will be here about 3:30pm, SW will speak w/son when here. JOSE G Duarte
--- NOTE | 2023-12-14 14:49 | PCM.CONS.GEN ---
Assessment & Plan Assessment/Plan (1) Dermatitis: PLAN: Per [facility] records, he saw derm and podiatry several years ago, dx with venous stasis dermatitis and prescribed triamcinolone cream which helped. No need for abx at this time. Recommend followup with derm for the rash or can restart triamcinolone cream in the meantime. Will follow as needed, thank you, josselyn Conner HPI Consult Data Date of Consult: 12/14/23 HPI Narrative Reason for Consultation: rash HPI Narrative: BALDEMAR SALAS, is a 78 M who presented 12/11 with intermittent confusion at home. Reports 2-3 weeks of dry scaly rash on L foot and ankle. He saw derm and podiatry several years ago, dx with venous stasis dermatitis and prescribed triamcinolone cream which helped. Admitted here. Feeling ok, no pain in his leg. Full ROS performed and neg except as noted above. PFSH Home Medications NK 12/12/23 [History Last Taken Unknown] Allergy/AdvReac Type Severity Reaction Status Date / Time No Known Allergies Allergy Verified 12/12/23 18:06 Social History Smoking Status: Former smoker Physical Exam Const alert and no apparent distress General Appearance: cooperative HEENT normocephalic and head/scalp atraumatic Eyes PERRL and EOMs intact bilaterally Neck supple and No nodes Resp normal air movement and clear to auscultation bilaterally Cardio regular rate and regular rhythm GI soft to palpation, non-tender and non-distended Extremity General Extremity: Negative for edema Skin Skin Narrative: dry scaly redness around L ankle Neuro CN's II-XII intact bilaterally Lab / Micro Data Attestation: I reviewed the patient's lab results. 12/13/23 03:05 12/13/23 03:05 Labs: Laboratory Results - last 24 hr 12/14/23 00:50: Urine Opiates Screen NEGATIVE, Urine Methadone Screen NEGATIVE, Ur Barbiturates Screen NEGATIVE, Ur Phencyclidine Scrn NEGATIVE, Ur Amphetamines Screen NEGATIVE, MDMA (Ecstasy) Screen NEGATIVE, U Benzodiazepines Scrn NEGATIVE, Urine Cocaine Screen NEGATIVE, U Cannabinoids Screen NEGATIVE, Ur Drug Screen Comment
[2023-12-14 15:00] VITALS: BP 134/71; PULSE 60; RESP 16; TEMP 37; O2SAT 98
--- NOTE | 2023-12-14 15:50 | CASEMGMT ---
Social Work- SW met with pt son, John, who was tearful in his relating the events that led to pt admit. John states that dad has always been paranoid and lacking in self care. Pt served in the [employer] and pt son believed he may have had PTSD, however, it is now believed there may be some mental health issues. PT daughter was recently found walking the streets and is in [place] on a psych hold with paranoid schizophrenic tendencies. PT son states that both pt and pt daughter, who is developmentally delayed, were reporting to John that the other was paranoid and not acting right. John requested a meeting with Jasmin at [facility], as he is seeking placement for pt. EMA emailed Jasmin. JUAN RAMON Castaneda
--- NOTE | 2023-12-14 16:33 | CASEMGMT ---
Met with patients son to complete [employer] form. [employer] form explained to?pt's son who voiced understanding and signed form. Original form placed in pt?s chart and copy provided to?pt's son. Aimee Noyola, Discharge Planning Asst
--- NOTE | 2023-12-14 16:44 | CASEMGMT ---
Social Work- EMA met with John, pt son, and Jasmin, [facility], to discuss medicaid and plans for d/c. Jasmin states that she will submit application tonight. EMA printed a SNF list for a different geographical region per John request. EMA will follow up with John tomorrow on d/c plans, as well as POA papers, per request of John. JUAN RAMON Castaneda
--- NOTE | 2023-12-14 17:05 | PN.HOSP_ITS ---
Reason for Visit Reason for Visit: Diagnoses Dermatitis, unspecified (12/12/23) Localized swelling, mass and lump, left lower limb (12/12/23) Disorientation, unspecified (12/12/23) Abnormal weight loss (12/12/23) Tobacco use (12/12/23) Objective Data Objective Data Vital Signs: Vital Signs Temp Pulse Resp BP Pulse Ox O2 Del Method 98.6 F 60 16 134/71 H 98 Room Air 12/14/23 15:00 12/14/23 15:00 12/14/23 15:00 12/14/23 15:00 12/14/23 15:00 12/14/23 15:00 Oxygen Delivery Method Room Air Weight: 141 lb 15.643 oz Body Mass Index (BMI) 19.8 Intake & Output: Intake and Output for Last 24 Hours 12/12/23 12/13/23 12/14/23 23:59 23:59 23:59 Intake Total 1000 / 1000 2517 / 2517 1911.16 / 1911.16 Output Total 1450 / 1450 Balance 1000 / 1000 1067 / 1067 1911.16 / 1911.16 Lab / Micro Data 12/13/23 03:05 12/13/23 03:05 Labs: Laboratory Results - last 24 hr 12/14/23 00:50: Urine Opiates Screen NEGATIVE, Urine Methadone Screen NEGATIVE, Ur Barbiturates Screen NEGATIVE, Ur Phencyclidine Scrn NEGATIVE, Ur Amphetamines Screen NEGATIVE, MDMA (Ecstasy) Screen NEGATIVE, U Benzodiazepines Scrn NEGATIVE, Urine Cocaine Screen NEGATIVE, U Cannabinoids Screen NEGATIVE, Ur Drug Screen Comment Physical Exam Narrative Seen and examined. Patient is hard of hearing. No fever. No signs and symptoms of infection. General: Alert, Oriented x3, Cooperative HEENT: Atraumatic, PERRLA, EOMI, Normocephalic Oral: No Gingival or Mucosal Lesions/ Ulcerations Neck: Supple, No JVD, Negative Carotid Bruits Chest wall/Lungs: Air entry diminished in bilateral lung bases. No crepitation/rhonchi Cardiovascular: Regular rate, Regular Rhythm, Normal S1, Normal S2, No M/G/R Abdomen: Bowel Sounds Present, Soft, Non Tender, Non-Distended : No dysuria. No renal angle tenderness. No suprapubic tenderness. Extremities: No edema, Capillary Refill Less than 3 Seconds Skin: Chronic skin thickening of left lower leg with hyperplasia. No open ulcer. Chronic dermatitis Musculoskeletal: No Tenderness to Palpation of Joints or Extremities Neurological: Cranial nerves II-XII grossly intact, DTR 2+/4. No acute focal neurological deficit. Psych/Mental Status: Normal Affect, Appropriate. Assessment & Plan Assessment/Plan (1) Mass of left lower leg: (2) Weight loss, abnormal: (3) Intermittent confusion: (4) Tobacco abuse: PLAN: Plan 1. Large irregular subcutaneous thick chronic lesion on LLE most likely chronic dermatitis: [facility]. Has not seek attention to left lower extremity subcutaneous lesions/mass which has been there for at least more than [address] of left lower extremity without IV contrast reviewed. It shows diffuse subcutaneous edema with large irregular skin thickening medially from mid calf to ankle region. Bones are osteopenic but no lytic or cortical destruction. No well-defined mass. Overall it seems the skin hypertrophy/subcutaneous fungal/chronic bacterial infection. Patient was evaluated by surgery and, exam not consistent with cutaneous malignancy but possible chronic inflammatory condition including lipodermatosclerosis. ID consult requested for tomorrow morning to rule out any chronic infection 12/13: ID was consulted for suspicion of chronic infection. Patient has seen senior biostatistician/group leader and technical planner several years ago including clinic and diagnosis was venous stasis dermatitis and was prescribed triamcinolone cream which did not help. Does not see a infectious etiology therefore antibiotic discontinued. Recommended follow-up outpatient dermatology. General cleaning. 2. Intermittent confusion and unhygienic condition at home/inability to take care himself: No specific reversible cause of confusion found in patient here alert and awake oriented x 3. Give Tylenol as needed pain or fever. PT and OT and director of casework department consulted for necessary help TSH normal. B12 pending. Folate normal. Glucose in normal range. 12/13:B12 still pending. 2. Tobacco abuse - Tobacco cessation will be strongly encouraged with nicotine patch offered to control cravings. 3. History of medical noncompliance - Noted. 4. DVT prophylaxis - Lovenox 40 mg subcu daily. Charges/Coding Visit Charges Inpatient E&M: 48392 Subs Hosp L2
[2023-12-14 20:02] LABS: Vitamin B12 425 pg/mL (211-911)
[2023-12-14 20:04] VITALS: BP 125/59; PULSE 51; RESP 16; TEMP 36.8; O2SAT 98
[2023-12-14] MEDS: Triamcinolone 0.5% Cream 1 APPLIC TOPICAL (22:54)
[2023-12-15 03:30] VITALS: BP 119/54; PULSE 50; RESP 18; TEMP 36.6; O2SAT 98
[2023-12-15] MEDS: 0.9% Normal Saline (1000mL) 1,000 ML 70 ML IV ×2 (07:25→19:42)
[2023-12-15] MEDS: Enoxaparin 40 MG/0.4 ML Syringe SC (08:05)
[2023-12-15] MEDS: Triamcinolone 0.5% Cream 1 APPLIC TOPICAL ×2 (08:05→21:08)
[2023-12-15] MEDS: Ensure Plus High Protein 120 ML LIQUID PO ×2 (08:10→11:35)
[2023-12-15 09:30] VITALS: BP 157/81; PULSE 66; RESP 16; TEMP 37; O2SAT 95
[2023-12-15 15:00] VITALS: BP 127/60; PULSE 62; RESP 18; TEMP 36.3; O2SAT 97
--- NOTE | 2023-12-15 16:11 | CASEMGMT ---
Social Work- SW called son< german, and left vm asking to f/u on facilities list. JUAN RAMON Castaneda
--- NOTE | 2023-12-15 16:37 | PN.HOSP_ITS ---
Reason for Visit Reason for Visit: Diagnoses Dermatitis, unspecified (12/12/23) Localized swelling, mass and lump, left lower limb (12/12/23) Disorientation, unspecified (12/12/23) Abnormal weight loss (12/12/23) Tobacco use (12/12/23) Objective Data Objective Data Vital Signs: Vital Signs Temp Pulse Resp BP Pulse Ox O2 Del Method 97.3 F L 62 18 127/60 H 97 Room Air 12/15/23 15:00 12/15/23 15:00 12/15/23 15:00 12/15/23 15:00 12/15/23 15:00 12/15/23 15:00 Oxygen Delivery Method Room Air Weight: 143 lb 1.28 oz Body Mass Index (BMI) 20.0 Intake & Output: Intake and Output for Last 24 Hours 12/13/23 12/14/23 12/15/23 23:59 23:59 23:59 Intake Total 2517 / 2517 1912.16 / 1911.16 2240 / 2240 Output Total 1450 / 1450 2150 / 2150 Balance 1067 / 1067 191.16 / 1911.16 90 / 90 Lab / Micro Data 12/13/23 03:05 12/13/23 03:05 Labs: Laboratory Results - last 24 hr 12/13/23 03:05: Vitamin B12 425 Physical Exam Narrative Seen and examined. No acute change. Patient is hard of hearing. No fever. No signs and symptoms of infection. General: Alert, Oriented x3, Cooperative HEENT: Atraumatic, PERRLA, EOMI, Normocephalic Oral: No Gingival or Mucosal Lesions/ Ulcerations Neck: Supple, No JVD, Negative Carotid Bruits Chest wall/Lungs: Air entry diminished in bilateral lung bases. No crepitation/rhonchi Cardiovascular: Regular rate, Regular Rhythm, Normal S1, Normal S2, No M/G/R Abdomen: Bowel Sounds Present, Soft, Non Tender, Non-Distended : No dysuria. No renal angle tenderness. No suprapubic tenderness. Extremities: No edema, Capillary Refill Less than 3 Seconds Skin: Chronic skin thickening of left lower leg with hyperplasia. No open ulcer. Chronic dermatitis Musculoskeletal: No Tenderness to Palpation of Joints or Extremities Neurological: Cranial nerves II-XII grossly intact, DTR 2+/4. No acute focal neurological deficit. Psych/Mental Status: Normal Affect, Appropriate. Assessment & Plan Assessment/Plan (1) Mass of left lower leg: (2) Weight loss, abnormal: (3) Intermittent confusion: (4) Tobacco abuse: PLAN: Plan 1. Large irregular subcutaneous thick chronic lesion on LLE most likely chronic dermatitis: [facility]. Has not seek attention to left lower extremity subcutaneous lesions/mass which has been there for at least more than [address] of left lower extremity without IV contrast reviewed. It shows diffuse subcutaneous edema with large irregular skin thickening medially from mid calf to ankle region. Bones are osteopenic but no lytic or cortical destruction. No well-defined mass. Overall it seems the skin hypertrophy/subcutaneous fungal/chronic bacterial infection. Patient was evaluated by surgery and, exam not consistent with cutaneous malignancy but possible chronic inflammatory condition including lipodermatosclerosis. ID consult requested for tomorrow morning to rule out any chronic infection 12/13: ID was consulted for suspicion of chronic infection. Patient has seen stock worker and deliverer and computer networking instructor several years ago including clinic and diagnosis was venous stasis dermatitis and was prescribed triamcinolone cream which did not help. Does not see a infectious etiology therefore antibiotic discontinued. Recommended follow-up outpatient dermatology. General cleaning. 12/14: Patient does not have insurance. Will need Medicaid and then possible discharge to assisted living care. 2. Intermittent confusion and unhygienic condition at home/inability to take care himself: No specific reversible cause of confusion found in patient here alert and awake oriented x 3. Give Tylenol as needed pain or fever. PT and OT and high risk case manager consulted for necessary help TSH normal. B12 pending. Folate normal. Glucose in normal range. 12/13:B12 still pending. 2. Tobacco abuse - Tobacco cessation will be strongly encouraged with nicotine patch offered to control cravings. 3. History of medical noncompliance - Noted. 4. DVT prophylaxis - Lovenox 40 mg subcu daily. Charges/Coding Visit Charges Inpatient E&M: 82235 Subs Hosp L2
--- NOTE | 2023-12-15 16:55 | CASEMGMT ---
Social Work- SW met with pt and pt son to discuss facilities upon d/c. Yesterday, a list of SNF providers including quality and resource use data and consistent with the patient?s preferred geographic region, medical needs, and insurance network were provided from the [facility] Guide. Pt son contributed to discussion and [facility] was selected as [facility]. [facility] was selected as choice 2. Pt would like to talk to PT/OT about need for rehab. SW will pass information on. Discussion was started on HCPOA. Pt and pt in agreement about agent and wishes. HCPOA to be completed tomorrow along with referral JUAN RAMON Castaneda.
[2023-12-15 19:44] VITALS: BP 112/83; PULSE 48; RESP 18; TEMP 37; O2SAT 100
[2023-12-15 19:48] VITALS: PULSE 60
[2023-12-16 02:15] VITALS: BP 134/65; PULSE 50; RESP 16; TEMP 36.6; O2SAT 98
[2023-12-16 05:44] VITALS: BMI 20.2
[2023-12-16 09:00] VITALS: BP 127/74; PULSE 70; RESP 18; TEMP 36.7; O2SAT 97
[2023-12-16] MEDS: Ensure Plus High Protein 120 ML LIQUID PO (09:55)
[2023-12-16] MEDS: Enoxaparin 40 MG/0.4 ML Syringe SC (09:55)
[2023-12-16] MEDS: Triamcinolone 0.5% Cream 1 APPLIC TOPICAL ×2 (09:55→19:54)
[2023-12-16] MEDS: 0.9% Normal Saline (1000mL) 1,000 ML 70 ML IV ×2 (09:56→22:19)
[2023-12-16 10:22] VITALS: PULSE 70; O2SAT 97
[2023-12-16 12:18] VITALS: O2SAT 97
[2023-12-16 14:30] VITALS: BP 134/90; PULSE 60; RESP 18; TEMP 37; O2SAT 95
--- NOTE | 2023-12-16 15:37 | CASEMGMT ---
Social Work Pt and son requesting to complete Advance Directives. SW met with pt and explained both Living Will and Health Care POA. Pt chosing to complete documents and SW assisted in this process. Pt naming his son John as HCPOA. Original document given to pt and copy placed on pt chart. JUAN RAMON Bhatt
--- NOTE | 2023-12-16 15:44 | CASEMGMT ---
Social Work- SW called [facility] to follow up on referral and left a voicemail. JUAN RAMON Castaneda
--- NOTE | 2023-12-16 16:13 | CASEMGMT ---
Social Work- SW met with pt and pt son to discuss plan of care at d/c and provide copies of HCPOA/Living Will. Pt states that he is having some anxiety from sitting and waiting for d/c. SW and pt discussed techniques to combat anxiety. Pt son remains steadfast that he is cleaning the home, but it has been in a state of neglect and needs more work before pt can come home. Pt son states he threw a lot of pt clothing away because of the conditions as well. Pt son continues to express concern that because his sister is not in the home currently, pt would be home alone and may not have the capacity to care for himself. Pt maintains that he is strong and wants to go home for 1-2 days to try it. Discussion was had on the benefits of facility placement from hospital vs the community d/t timeliness and ease. Pt was observed through body language and verbal expressions to be significantly agitated when talking about his desire to go home vs son desire for a rehab facility. SW was able to de-escalate pt and provide support to both pt and son. SW will update pt and son when the remaining facility determines status of referral. JUAN RAMON Castaneda
--- NOTE | 2023-12-16 16:27 | PN.HOSP_ITS ---
Reason for Visit Reason for Visit: Diagnoses Dermatitis, unspecified (12/12/23) Localized swelling, mass and lump, left lower limb (12/12/23) Disorientation, unspecified (12/12/23) Abnormal weight loss (12/12/23) Tobacco use (12/12/23) Objective Data Objective Data Vital Signs: Vital Signs Temp Pulse Resp BP Pulse Ox O2 Del Method 98.6 F 60 18 134/90 H 95 Room Air 12/16/23 14:30 12/16/23 14:30 12/16/23 14:30 12/16/23 14:30 12/16/23 14:30 12/16/23 14:30 Oxygen Delivery Method Room Air Weight: 145 lb 1.027 oz Body Mass Index (BMI) 20.2 Intake & Output: Intake and Output for Last 24 Hours 12/14/23 12/15/23 12/16/23 23:59 23:59 23:59 Intake Total 1911.16 / 1911. 3099.83 / 3099.83 2056.33 / 2055.33 Output Total 2570 / 2570 1200 / 1200 Balance 1911.16 / 1911.16 529.83 / 529.83 856.33 / 856.33 Lab / Micro Data 12/13/23 03:05 12/13/23 03:05 Physical Exam Narrative Seen and examined. No acute change. Patient is hard of hearing. No fever. No signs and symptoms of infection. Patient is walking with the help of physical therapist. General: Alert, Oriented x3, Cooperative HEENT: Atraumatic, PERRLA, EOMI, Normocephalic Oral: No Gingival or Mucosal Lesions/ Ulcerations Neck: Supple, No JVD, Negative Carotid Bruits Chest wall/Lungs: Air entry diminished in bilateral lung bases. No crepitation/rhonchi Cardiovascular: Regular rate, Regular Rhythm, Normal S1, Normal S2, No M/G/R Abdomen: Bowel Sounds Present, Soft, Non Tender, Non-Distended : No dysuria. No renal angle tenderness. No suprapubic tenderness. Extremities: No edema, Capillary Refill Less than 3 Seconds Skin: Chronic skin thickening of left lower leg with hyperplasia. No open ulcer. Chronic dermatitis Musculoskeletal: No Tenderness to Palpation of Joints or Extremities. Patient has mild leg weakness, chronic Neurological: Cranial nerves II-XII grossly intact, DTR 2+/4. No acute focal neurological deficit. Psych/Mental Status: Normal Affect, Appropriate. Assessment & Plan Assessment/Plan (1) Mass of left lower leg: (2) Weight loss, abnormal: (3) Intermittent confusion: (4) Tobacco abuse: PLAN: Plan 1. Large irregular subcutaneous thick chronic lesion on LLE most likely chronic dermatitis: [facility]. Has not seek attention to left lower extremity subcutaneous lesions/mass which has been there for at least more than [address] of left lower extremity without IV contrast reviewed. It shows diffuse subcutaneous edema with large irregular skin thickening medially from mid calf to ankle region. Bones are osteopenic but no lytic or cortical destruction. No well-defined mass. Overall it seems the skin hypertrophy/subcutaneous fungal/chronic bacterial infection. Patient was evaluated by surgery and, exam not consistent with cutaneous malignancy but possible chronic inflammatory condition including lipodermatosclerosis. ID consult requested for tomorrow morning to rule out any chronic infection 12/13: ID was consulted for suspicion of chronic infection. Patient has seen analytics consultant and commercial front load driver several years ago including clinic and diagnosis was venous stasis dermatitis and was prescribed triamcinolone cream which did not help. Does not see a infectious etiology therefore antibiotic discontinued. Recommended follow-up outpatient dermatology. General cleaning. 12/14: Patient does not have insurance. Will need Medicaid and then possible discharge to assisted living care. 12/15: No acute change. Continue PT and OT. 2. Intermittent confusion and unhygienic condition at home/inability to take care himself: No specific reversible cause of confusion found in patient here alert and awake oriented x 3. Give Tylenol as needed pain or fever. PT and OT and embedded case manager consulted for necessary help TSH normal. B12 pending. Folate normal. Glucose in normal range. 12/13:B12 still pending. 12/15: B12 normal. Folic acid normal. 2. Tobacco abuse - Tobacco cessation will be strongly encouraged with nicotine patch offered to control cravings. 3. History of medical noncompliance - Noted. 4. DVT prophylaxis - Lovenox 40 mg subcu daily. Charges/Coding Visit Charges Inpatient E&M: 38255 Subs Hosp L2
[2023-12-16 20:30] VITALS: BP 133/62; PULSE 62; RESP 14; TEMP 36.6; O2SAT 99
[2023-12-17 04:16] VITALS: BMI 20.3
--- NOTE | 2023-12-17 09:13 | CASEMGMT ---
Social Work- SW attempted to call son and left a voicemail asking for a return call, as [facility] also denied referral and additional facilities are needed for referrals. JUAN RAMON Castaneda
[2023-12-17 09:38] VITALS: BP 145/66; PULSE 81; RESP 16; TEMP 36.8; O2SAT 98
[2023-12-17] MEDS: Triamcinolone 0.5% Cream 1 APPLIC TOPICAL ×2 (09:49→23:58)
[2023-12-17] MEDS: Enoxaparin 40 MG/0.4 ML Syringe SC (09:49)
[2023-12-17] MEDS: Ensure Plus High Protein 120 ML LIQUID PO ×2 (09:50→14:23)
--- NOTE | 2023-12-17 10:51 | CASEMGMT ---
Discharge Planning Referral sent via [facility] to [facility]. Aimee Noyola, Discharge Planning Asst.
--- NOTE | 2023-12-17 11:11 | CASEMGMT ---
Social Work- SW spoke with son and updated on new referrals d/t original declinations. Pt son would like referrals to [facility], [facility], [facility], [facility]. SW provided referrals. SW will keep pt and son updates on status of referrals. JUAN RAMON Castaneda
--- NOTE | 2023-12-17 12:05 | PN.HOSP_ITS ---
Reason for Visit Reason for Visit: Diagnoses Dermatitis, unspecified (12/12/23) Localized swelling, mass and lump, left lower limb (12/12/23) Disorientation, unspecified (12/12/23) Abnormal weight loss (12/12/23) Tobacco use (12/12/23) Objective Data Objective Data Vital Signs: Vital Signs Temp Pulse Resp BP Pulse Ox O2 Del Method 98.3 F 81 16 145/66 H 98 Room Air 12/17/23 09:38 12/17/23 09:38 12/17/23 09:38 12/17/23 09:38 12/17/23 09:38 12/17/23 09:38 Oxygen Delivery Method Room Air Weight: 145 lb 4.554 oz Body Mass Index (BMI) 20.3 Intake & Output: Intake and Output for Last 24 Hours 12/15/23 12/16/23 12/17/23 23:59 23:59 23:59 Intake Total 3099.83 / 3099.83 3598.16 / 3718.16 120 / 120 Output Total 2570 / 2570 1800 / 1800 Balance 529.83 / 529.83 1798.16 / 1918.16 120 / 120 Lab / Micro Data 12/13/23 03:05 12/13/23 03:05 Physical Exam Narrative Seen and examined. No acute change. Patient wants to go home. Patient is hard of hearing. No fever. No signs and symptoms of infection. Patient is walking with the help of physical therapist. General: Alert, Oriented x3, Cooperative HEENT: Atraumatic, PERRLA, EOMI, Normocephalic Oral: No Gingival or Mucosal Lesions/ Ulcerations Neck: Supple, No JVD, Negative Carotid Bruits Chest wall/Lungs: Air entry diminished in bilateral lung bases. No crepitation/rhonchi Cardiovascular: Regular rate, Regular Rhythm, Normal S1, Normal S2, No M/G/R Abdomen: Bowel Sounds Present, Soft, Non Tender, Non-Distended : No dysuria. No renal angle tenderness. No suprapubic tenderness. Extremities: No edema, Capillary Refill Less than 3 Seconds Skin: Chronic skin thickening of left lower leg with hyperplasia. No open ulcer. Chronic dermatitis Musculoskeletal: No Tenderness to Palpation of Joints or Extremities. Patient has mild leg weakness, chronic Neurological: Cranial nerves II-XII grossly intact, DTR 2+/4. No acute focal neurological deficit. Psych/Mental Status: Normal Affect, Appropriate. Assessment & Plan Assessment/Plan (1) Mass of left lower leg: (2) Weight loss, abnormal: (3) Intermittent confusion: (4) Tobacco abuse: PLAN: Plan 1. Large irregular subcutaneous thick chronic lesion on LLE most likely chronic dermatitis: [facility]. Has not seek attention to left lower extremity subcutaneous lesions/mass which has been there for at least more than [address] of left lower extremity without IV contrast reviewed. It shows diffuse subcutaneous edema with large irregular skin thickening medially from mid calf to ankle region. Bones are osteopenic but no lytic or cortical destruction. No well-defined mass. Overall it seems the skin hypertrophy/subcutaneous fungal/chronic bacterial infection. Patient was evaluated by surgery and, exam not consistent with cutaneous malignancy but possible chronic inflammatory condition including lipodermatosclerosis. ID consult requested for tomorrow morning to rule out any chronic infection 12/13: ID was consulted for suspicion of chronic infection. Patient has seen reservations sales supervisor and riveting machine operator several years ago including clinic and diagnosis was venous stasis dermatitis and was prescribed triamcinolone cream which did not help. Does not see a infectious etiology therefore antibiotic discontinued. Recommended follow-up outpatient dermatology. General cleaning. 12/14: Patient does not have insurance. Will need Medicaid and then possible discharge to assisted living care. 12/15: No acute change. Continue PT and OT. 12/16 no acute change in medical status. Pending Medicaid approval. 2. Intermittent confusion and unhygienic condition at home/inability to take care himself: No specific reversible cause of confusion found in patient here alert and awake oriented x 3. Give Tylenol as needed pain or fever. PT and OT and piano case maker consulted for necessary help TSH normal. B12 pending. Folate normal. Glucose in normal range. 12/13:B12 still pending. 12/15: B12 normal. Folic acid normal. 2. Tobacco abuse - Tobacco cessation will be strongly encouraged with nicotine patch offered to control cravings. 3. History of medical noncompliance - Noted. 4. DVT prophylaxis - Lovenox 40 mg subcu daily. Charges/Coding Visit Charges Inpatient E&M: 65450 Subs Hosp L2
[2023-12-17 14:25] VITALS: BP 119/89; PULSE 82; RESP 16; TEMP 37.2; O2SAT 97
[2023-12-17] MEDS: 0.9% Normal Saline (1000mL) 1,000 ML 70 ML IV (14:29)
--- NOTE | 2023-12-17 14:44 | CASEMGMT ---
Addendum entered by Rosa Lerner 12/17/23 16:14: Social Work- SW submitted LOC to [facility]. JUAN RAMON Castaneda Addendum entered by Rosa Lerner 12/17/23 15:54: Social Work- SW met with son to gather information for level of care and finalize placement plans. JUAN RAMON Castaneda Original Note: Social Work- SW received word of acceptance from [facility] and [facility]. SW met with pt to notify him of acceptances. Pt states that he will think about which facility that he would prefer. Pt states that he has done well today, less anxiety, although he is hoping for d/c today. Pt states that he will wait for son to come in before finalizing a decision. SW called pt son who states that he prefers [facility]. Pt son will be in later today to finalize choice with pt and provide information for the level of care. JUAN RAMON Castaneda
--- NOTE | 2023-12-17 15:00 | PCM.TXEXTCAR ---
Diet Diet Order/Speech Therapy: 12/12/23 23:09 Diet: Regular - General Food consistency:: Regular Liquid Consistency:: Regular/Thin Is pt able to select menu?: Yes Therapies Weight Bearing: Weight bearing as tolerated Physical Therapy: Eval and Treat Occupational Therapy: Eval and Treat Problem/Diagnosis (1) Mass of left lower leg: Status: Acute Code(s): R22.42 - Localized swelling, mass and lump, left lower limb (2) Weight loss, abnormal: Status: Acute Code(s): R63.4 - Abnormal weight loss (3) Intermittent confusion: Status: Acute Code(s): R41.0 - Disorientation, unspecified (4) Tobacco abuse: Status: Acute Code(s): Z72.0 - Tobacco use Plan 1. Large irregular subcutaneous thick chronic lesion on LLE most likely chronic dermatitis: [facility]. Has not seek attention to left lower extremity subcutaneous lesions/mass which has been there for at least more than [address] of left lower extremity without IV contrast reviewed. It shows diffuse subcutaneous edema with large irregular skin thickening medially from mid calf to ankle region. Bones are osteopenic but no lytic or cortical destruction. No well-defined mass. Overall it seems the skin hypertrophy/subcutaneous fungal/chronic bacterial infection. Patient was evaluated by surgery and, exam not consistent with cutaneous malignancy but possible chronic inflammatory condition including lipodermatosclerosis. ID consult requested for tomorrow morning to rule out any chronic infection 12/13: ID was consulted for suspicion of chronic infection. Patient has seen office analyst and teletray operator several years ago including clinic and diagnosis was venous stasis dermatitis and was prescribed triamcinolone cream which did not help. Does not see a infectious etiology therefore antibiotic discontinued. Recommended follow-up outpatient dermatology. General cleaning. 12/14: Patient does not have insurance. Will need Medicaid and then possible discharge to assisted living care. 12/15: No acute change. Continue PT and OT. 12/16 no acute change in medical status. Pending Medicaid approval. 2. Intermittent confusion and unhygienic condition at home/inability to take care himself: No specific reversible cause of confusion found in patient here alert and awake oriented x 3. Give Tylenol as needed pain or fever. PT and OT and egg caser consulted for necessary help TSH normal. B12 pending. Folate normal. Glucose in normal range. 12/13:B12 still pending. 12/15: B12 normal. Folic acid normal. 2. Tobacco abuse - Tobacco cessation will be strongly encouraged with nicotine patch offered to control cravings. 3. History of medical noncompliance - Noted. 4. DVT prophylaxis - Lovenox 40 mg subcu daily. Allergies/Procedures Done in Hospital Allergies No Known Allergies Allergy (Verified 12/12/23 18:06) Type of Care/Length of Stay Estimated LOS: Convalescent Care Less Than 30 days Type of Care Needed: Skilled Rehab Potential: Good Prognosis: Good Additional Orders/Day of Discharge Day of Discharge: 12/17/23 Discharge Plan Admission Admit Date/Time: 12/12/23 22:52 Primary Reason for Your Visit: Large chronic subcutaneous irregular skin lesion, chronic dermatitis Attending Provider: Jaime Conner Primary Care Provider: Care Physician,No Primary Consulting Providers: Corbin Simpson; Jamie Hendrix; Kareem Hernández Instructions Additional Instructions / Restrictions: Follow outside own office analyst, [facility] Discharge Orders/Prescriptions Prescriptions: New acetaminophen 325 mg Tablet 650 mg PO Q6H PRN PRN (Reason: Pain 1-10 Or Fever>100.7) Qty: 0 0RF nicotine 14 mg/24 hr Patch 24 Hour 14 mg transdermal DAILY Qty: 0 0RF triamcinolone acetonide 0.5 % Cream 1 applic topical BID 7 Days Qty: 15 0RF Protocol: *Topical Application Instructions APPLICATION INSTRUCTIONS: On leg on thick crust. Referrals / Follow Up: Corbin Odom DPM [Med Staff - Active Staff] - Within 2 Weeks (fungal foot infection. Onychomycosis) Care Physician,No Primary [Primary Care Provider] - Disposition Disposition (needs filled in before D/C Order can be placed): Care Home Facility
[2023-12-17 23:30] VITALS: BP 138/77; PULSE 62; RESP 18; TEMP 37.1; O2SAT 99
[2023-12-18] MEDS: 0.9% Normal Saline (1000mL) 1,000 ML 70 ML IV (04:03)
[2023-12-18 04:40] VITALS: BP 149/72; PULSE 58; RESP 18; TEMP 37.1; O2SAT 98
[2023-12-18 06:00] VITALS: BMI 20.2
[2023-12-18 07:48] VITALS: BP 133/52; PULSE 51; RESP 16; TEMP 36.6; O2SAT 99
[2023-12-18] MEDS: Ensure Plus High Protein 120 ML LIQUID PO ×2 (07:54→12:55)
--- NOTE | 2023-12-18 08:35 | CASEMGMT ---
Discharge Planning Elizabeth @ [facility] notified that they are foc and patient will likely dc today. Aimee Noyola DC Planning Asst.
--- NOTE | 2023-12-18 09:46 | CASEMGMT ---
Social Work- EMA spoke with [facility] who called to update on LOC for pt. SW shared updated PT note from today. SW was advised that LOC will be completed and emailed to SW later today. JUAN RAMON Castaneda
--- NOTE | 2023-12-18 09:51 | PCM.DC.SUM ---
Providers Date of Admission: 12/12/23 Date of Discharge: 12/18/23 Primary Care Physician: Ann Primary Care Phys Consultations 12/13/23 01:28 Consult: General Surgery Routine Consulting Provider: Corbin Simpson Reason for Consult: Large Mass on Left Leg. EMERGENT Consult: No Notified: Yes Date Notified: 12/13/23 Time Notified: 07:13 Method of Notification: Text 12/13/23 15:36 Consult: Infectious Disease Routine Consulting Provider: Kareem Hernández Reason for Consult: chronic LLE skin lesion, R/O chr fungal/bacterial infection EMERGENT Consult: No Notified: Yes Date Notified: 12/13/23 Time Notified: 15:36 Method of Notification: Text Reason For Visit: PATIENT CAN NO LONGER BE CARED FOR AT HOME Diagnosis Discharge Diagnosis (1) Mass of left lower leg: Status: Acute Code(s): R22.42 - Localized swelling, mass and lump, left lower limb (2) Weight loss, abnormal: Status: Acute Code(s): R63.4 - Abnormal weight loss (3) Intermittent confusion: Status: Acute Code(s): R41.0 - Disorientation, unspecified (4) Tobacco abuse: Status: Acute Code(s): Z72.0 - Tobacco use Plan 78-year-old gentleman was admitted with large irregular subcutaneous thick lesion on left lower extremity. Patient also had change in mental status as per EMS. 1. Large irregular subcutaneous thick chronic lesion on LLE most likely chronic dermatitis: Patient is being admitted on [facility] floor. Has not seek attention to left lower extremity subcutaneous lesions/mass which has been there for at least more than [address] of left lower extremity without IV contrast reviewed. It shows diffuse subcutaneous edema with large irregular skin thickening medially from mid calf to ankle region. Bones are osteopenic but no lytic or cortical destruction. No well-defined mass. Overall it seems the skin hypertrophy/subcutaneous fungal/chronic bacterial infection. Patient was evaluated by surgery and, exam not consistent with cutaneous malignancy but possible chronic inflammatory condition including lipodermatosclerosis. ID consult requested for tomorrow morning to rule out any chronic infection 12/13: ID was consulted for suspicion of chronic infection. Patient has seen implementation engineer and autos disassembler several years ago including clinic and diagnosis was venous stasis dermatitis and was prescribed triamcinolone cream which did not help. Does not see a infectious etiology therefore antibiotic discontinued. Recommended follow-up outpatient dermatology. General cleaning. 12/14: Patient does not have insurance. Will need Medicaid and then possible discharge to assisted living care. 12/15: No acute change. Continue PT and OT. 12/16 no acute change in medical status. Pending Medicaid approval. 12/17: Patient is being discharged to retirement. 2. Intermittent confusion and unhygienic condition at home/inability to take care himself: No specific reversible cause of confusion found in patient here alert and awake oriented x 3. Give Tylenol as needed pain or fever. PT and OT and business information manager consulted for necessary help TSH normal. B12 pending. Folate normal. Glucose in normal range. 12/13:B12 still pending. 12/15: B12 normal. Folic acid normal. 12/17: No change in mental status while patient in hospital. Acute encephalopathy ruled out. 2. Tobacco abuse - Tobacco cessation will be strongly encouraged with nicotine patch offered to control cravings. 3. History of medical noncompliance - Noted. 4. DVT prophylaxis - Lovenox 40 mg subcu daily. Discharge medication reconciliation done. Discharge follow-up instructions completed. Discharge process discussed with the patient and all questions were answered to patient's satisfaction. Follow with PCP in 1 to 2 weeks Total time spent, exact 35 minutes on discharge meds reconciliation, examination, coordination of care with nurses and ancillary staff, review of imaging and blood test and discussion with the patient on follow-up instructions. Medications at Discharge Home Medications acetaminophen 325 mg tablet 650 mg (2 x 325 mg) PO Q6H PRN PRN Pain 1-10 Or Fever>100.7 #0 tabs 12/17/23 nicotine 14 mg/24 hr daily transdermal patch 14 mg transdermal DAILY #0 ea 12/17/23 triamcinolone acetonide 0.5 % topical cream 1 applic topical BID 7 days #15 grams 12/17/23 Physical Exam Narrative Seen and examined. No acute change. Patient is hard of hearing. No fever. No signs and symptoms of infection. Patient is walking with the help of physical therapist. Physical exam General: Alert, Oriented x3, Cooperative HEENT: Atraumatic, PERRLA, EOMI, Normocephalic Oral: No Gingival or Mucosal Lesions/ Ulcerations Neck: Supple, No JVD, Negative Carotid Bruits Chest wall/Lungs: Air entry diminished in bilateral lung bases. No crepitation/rhonchi Cardiovascular: Regular rate, Regular Rhythm, Normal S1, Normal S2, No M/G/R Abdomen: Bowel Sounds Present, Soft, Non Tender, Non-Distended : No dysuria. No renal angle tenderness. No suprapubic tenderness. Extremities: No edema, Capillary Refill Less than 3 Seconds Skin: Chronic skin thickening of left lower leg with hyperplasia improved in appearance. No open ulcer. Chronic dermatitis Musculoskeletal: No Tenderness to Palpation of Joints or Extremities. Patient has mild leg weakness, chronic Neurological: Cranial nerves II-XII grossly intact, DTR 2+/4. No acute focal neurological deficit. Psych/Mental Status: Normal Affect, Appropriate. Weight / BMI Weight Weight: 144 lb 13.499 oz Body Mass Index (BMI) 20.2 ABG / Lab / Microbiology Data 12/13/23 03:05 12/13/23 03:05 Meaningful Use Info Meaningful Use Meaningful Use Diagnoses (Choose all that apply): None applicable Ischemic Stroke Statin Dosing Therapy Reference: STATIN DOSE THERAPY REFERENCE: * Patients > 75 years receive moderate or high dose statin therapy. * Patients 75 years or YOUNGER should receive HIGH intensity statin dose unless contraindicated. You will be required to document reason for non-treatment if statin daily dose does not meet guidelines. HIGH DOSE STATIN THERAPY DAILY Atorvastatin > than or = to 40 mg Rosuvastatin > than or = to 20 mg Amlodipine + Atorvastatin > than or = to 2.5/40 mg Ezetimibe + Simvastatin 10/80 mg Simvastatin 80mg Discharge Plan Admission Admit Date/Time: 12/12/23 22:52 Primary Reason for Your Visit: Large chronic subcutaneous irregular skin lesion, chronic dermatitis Attending Provider: Jaime Conner Primary Care Provider: Care Physician,No Primary Consulting Providers: Corbin Simpson; Jamie Hendrix; Kareem Hernández Instructions Additional Instructions / Restrictions: Follow outside own implementation engineer, [facility] Discharge Orders/Prescriptions Prescriptions: New acetaminophen 325 mg Tablet 650 mg PO Q6H PRN PRN (Reason: Pain 1-10 Or Fever>100.7) Qty: 0 0RF nicotine 14 mg/24 hr Patch 24 Hour 14 mg transdermal DAILY Qty: 0 0RF triamcinolone acetonide 0.5 % Cream 1 applic topical BID 7 Days Qty: 15 0RF Protocol: *Topical Application Instructions APPLICATION INSTRUCTIONS: On leg on thick crust. Referrals / Follow Up: Corbin Odom DPM [Med Staff - Active Staff] - Within 2 Weeks (fungal foot infection. Onychomycosis) Care Physician,No Primary [Primary Care Provider] - Disposition Disposition (needs filled in before D/C Order can be placed): Senior Living Facility Charges/Coding Visit Charges Inpatient E&M: 15009 Disch Hosp >30min
[2023-12-18] MEDS: Triamcinolone 0.5% Cream 1 APPLIC TOPICAL (10:28)
[2023-12-18] MEDS: Enoxaparin 40 MG/0.4 ML Syringe SC (10:28)
--- NOTE | 2023-12-18 12:02 | CASEMGMT ---
Social Work- LOC has been obtained.? Physician updated and pt is ready for discharge today.? Forms completed in [facility]. Discharge Marketing Education Teacher notified. SW met with pt and they are agreeable to discharge plan as stated above.? Bedside nurse notified of discharge time. Disposition:JUAN RAMON Dietrich
--- NOTE | 2023-12-18 12:07 | CASEMGMT ---
Discharge Planning Discharge orders, signed med list, and transport time sent to [facility] via [facility]. Physicians will transport patient by wheelchair at 1p. Nursing, EMA, and his son (John) updated. SW to update patient. Aimee Noyola DC Planning Asst.
== END 2023-12-18 14:00 | disposition skilled nursing facility (03) ==
LOC: ED 22:38 → MS3 23:23
PROVIDERS: Admitting Provider Internal Medicine; Emergency Provider Emergency Medicine; Visit Provider Internal Medicine
DX: R22.42 Localized swelling, mass and lump, left lower limb (principal); R41.0 Disorientation, unspecified; L30.9 Dermatitis, unspecified; R63.4 Abnormal weight loss; Z87.891 Personal history of nicotine dependence; Z91.199 Patient's noncompliance with other medical treatment and regimen due to unspecified reason; Z68.20 Body mass index [BMI] 20.0-20.9, adult; M85.80 Other specified disorders of bone density and structure, unspecified site
CPT/HCPCS: 71045; 71260; 73700; 80053; 80307; 80320; 81001; 82607; 82746; 83605; 83735; 84100; 84443; 85025; 94668; 96360; 96372; 97116; 97162; 97166; 97530; 97535; 99221; 99252; 99284; J7030; Q9967; A4216; G0378; G0463; G0480

== ENCOUNTER 2024-12-18 16:07 | Emergency (ER) | payer MEDICARE, SELFPAY ==
[2024-12-18 16:08] VITALS: BP 117/81; PULSE 81; RESP 18; TEMP 36; O2SAT 100; BMI 20.9
[2024-12-18] MEDS: Carbamide Peroxide 15 ML Bottle 5 DRP OTIC (16:27)
--- NOTE | 2024-12-18 16:28 | EX.ED.DYSGE1 ---
HPI History of Present Illness Chief Complaint: Ear Problem Narrative Narrative: Chief complaint and HPI: Bilateral ear popping. 79-year-old male with past medical history of tobacco abuse presents for evaluation of bilateral popping in his ears. Patient states now he feels or hears intermittent hissing sounds like his ears are full. He denies any fever, chills, shortness of breath, chest pain, URI symptoms, nausea, vomiting, headache, lightheadedness, tinnitus, vision changes. States he is hard of hearing at baseline. Review of systems: See HPI Medications: As listed on the chart Allergies: As listed on the chart PFSH: Per chart Vital signs: As listed on the chart. Reviewed. Physical exam: Gen: A&O x3, NAD Head: Normocephalic, atraumatic Eyes: No sclera icterus, conjunctiva clear, PERRL, EOMI ENT: EACs are impacted with cerumen bilaterally unable to visualize tympanic membranes, hard of hearing, moist mucous membranes, posterior oropharynx unremarkable, uvula midline, tonsils not enlarged, no tonsillar exudates, no sinus tenderness, no nasal congestion Neck: Trachea midline, No JVD, Full ROM, No meningismus CV: RRR, no murmurs, no peripheral edema Resp: Lungs CTA BL, no w/r/c Musc: Full ROM, no deformity Skin: Warm, dry, no rash Neuro: Alert, oriented, grossly intact, sensation intact Psych: Cooperative, appropriate mood and affect [facility] Medical History (Updated 12/18/24 @ 17:[address] Kodak Ferris, DO) Dermatitis Tobacco abuse Home Medications ?Medication ?Instructions ?Recorded ?Last Taken ?Type acetaminophen 325 mg tablet 650 mg (2 x 325 mg) PO Q6H PRN PRN 12/17/23 Unknown Rx Pain 1-10 Or Fever>100.7 #0 tabs nicotine 14 mg/24 hr daily 14 mg transdermal DAILY #0 ea 12/17/23 Unknown Rx transdermal patch triamcinolone acetonide 0.5 % 1 applic topical BID 7 days #15 12/17/23 Unknown Rx topical cream grams Allergy/AdvReac Type Severity Reaction Status Date / Time No Known Allergies Allergy Verified 12/18/24 16:08 Family History no significant family his Social History (Updated 12/18/24 @ 16:18 by Ree Jones) household members: none housing: house current occupational status: retired Smoking Status: Former smoker EXAM Physical Exam Const Vital Signs: 12/18/24 16:08 Temperature 96.8 F L Temperature Source Temporal Pulse Rate 81 Respiratory Rate 18 Blood Pressure 117/81 H Blood Pressure Mean 93 Pulse Ox 100 Oxygen Delivery Method Room Air MDM MDM MDM Narrative Medical decision making narrative: 79-year-old male with past medical history of tobacco abuse presents for evaluation of bilateral popping in his ears. He denies any associated symptoms. Physical exam is unremarkable except for bilaterally impacted cerumen of the EACs. I suspect that this may be a cause of his symptoms. Debrox will be placed in each ear and patient's ears will be irrigated. Patient's ears were irrigated and he tolerated this well. On reexamination, patient states his ear popping has resolved. Tympanic membranes are clear bilaterally. EACs clear. Patient stable to discharge home. Recommended [id number] earwax drops for thinning. Follow-up with PCP. He confirmed understand the plan. Impression: 1. Bilateral cerumen impaction of the ears Discharge Plan Triage Chief Complaint: Ear Problem ED Provider: Kodak Ferris Dx/Rx/DC Orders Clinical Impression: Bilateral impacted cerumen Instructions: ED Earwax Removal Prescriptions: No Action acetaminophen 325 mg Tablet 650 mg PO Q6H PRN PRN (Reason: Pain 1-10 Or Fever>100.7) Qty: 0 0RF nicotine 14 mg/24 hr Patch 24 Hour 14 mg transdermal DAILY Qty: 0 0RF triamcinolone acetonide 0.5 % Cream 1 applic topical BID 7 Days Qty: 15 0RF Protocol: *Topical Application Instructions APPLICATION INSTRUCTIONS: On leg on thick crust. Primary Care Provider: Care Physician,No Primary Referrals: Elias Alicia MD [Med Staff - Active Staff] - 3-5 Days Activity Restrictions/Additional Instructions: Follow-up with primary care physician. If you do not have 1 follow-up with the 1 provided above. Get [id number] eardrops as needed to help keep earwax thin Print Language: Ukrainian Disposition Disposition: Home, Self Care
== END 2024-12-18 18:11 | disposition home or self-care (01) ==
PROVIDERS: Emergency Provider Surgery; Referring Provider Surgery; Visit Provider Surgery
DX: H61.23 Impacted cerumen, bilateral (principal); Z87.891 Personal history of nicotine dependence
CPT/HCPCS: 69209; 99283

== ENCOUNTER 2025-01-17 14:17 | Emergency (ER) | payer MEDICARE, SELFPAY ==
[2025-01-17 14:18] VITALS: BP 134/113; PULSE 88; RESP 18; TEMP 36.6; O2SAT 98; BMI 20.7
--- NOTE | 2025-01-17 15:50 | EDS_ITS ---
HPI History of Present Illness Chief Complaint: Lower Extremity Injury Narrative Narrative: Patient is a 79-year-old male past medical history of dermatitis, tobacco use who presents to the emergency department with wanting to be evaluated for his right great toe. He states that this has been going on for a significant time and he states that he wanted to be taken care of today. Patient states that he has seen dermatology in the past but has not ever seen a foot doctor. Patient otherwise has been feeling his normal self and has no other complaints. [facility] Medical History Dermatitis Tobacco abuse Home Medications ?Medication ?Instructions ?Recorded ?Last Taken ?Type acetaminophen 325 mg tablet 650 mg (2 x 325 mg) PO Q6H PRN PRN 12/17/23 Unknown Rx Pain 1-10 Or Fever>100.7 #0 tabs nicotine 14 mg/24 hr daily 14 mg transdermal DAILY #0 ea 12/17/23 Unknown Rx transdermal patch triamcinolone acetonide 0.5 % 1 applic topical BID 7 d ays #15 12/17/23 Unknown Rx topical cream grams Allergy/AdvReac Type Severity Reaction Status Date / Time No Known Allergies Allergy Verified 01/17/25 14:18 Social History household members: none housing: house current occupational status: retired Smoking Status: Former smoker ROS ROS ED ROS Narrative Constitutional: Denies fevers, chills Neurological: Denies numbness, wheeze, tingling Skin: Complains of right great toe evaluation EXAM Physical Exam Narrative Exam Narrative: General: Patient lying in bed rest comfortably did not appear to be acute distress Head: Atraumatic, normocephalic Eyes: PERRL bilaterally, EOMI blood, no conjunctival injection noted Neck: Soft, supple, trach midline Cardiovascular: Regular rate Extremities: DP pulses +2/4 in the bilateral lower extremities Neurological: Patient follow commands that he was at [facility] year is 2024 Skin: Patient has chronic changes to his toenails in his bilateral feet no concern for infection his right great toe at this point in time. Const Vital Signs: 01/17/25 14:18 Temperature 98 F Temperature Source Temporal Pulse Rate 88 Respiratory Rate 18 Blood Pressure 134/113 H Blood Pressure Mean 120 Pulse Ox 98 Oxygen Delivery Method Room Air MDM MDM MDM Narrative Medical decision making narrative: Patient is a 79-year-old male who presented to the emergency department for right foot evaluation of a right great toenail. On the differential diagnose includes but not limited to chronic nail changes, ingrown toe, cellulitis although do feel these are less likely as he has no surrounding erythema to suggest infection at this point time. I discussed that he needs to see a slag expander for his toenails as here in the emergency department we are not able to cut his toenail and given the chronicity of this toenail best suited to be seen by a slag expander in outpatient setting. He will be given follow-up. He was encouraged return with worsening symptoms or concerns. He is agreeable this plan all question concerns answered discharged home in stable condition. Discharge Plan Triage Chief Complaint: Lower Extremity Injury ED Provider: Sabino Zuniga Dx/Rx/DC Orders Clinical Impression: Nail overgrowth Prescriptions: No Action acetaminophen 325 mg Tablet 650 mg PO Q6H PRN PRN (Reason: Pain 1-10 Or Fever>100.7) Qty: 0 0RF nicotine 14 mg/24 hr Patch 24 Hour 14 mg transdermal DAILY Qty: 0 0RF triamcinolone acetonide 0.5 % Cream 1 applic topical BID 7 Days Qty: 15 0RF Protocol: *Topical Application Instructions APPLICATION INSTRUCTIONS: On leg on thick crust. Primary Care Provider: Care Physician,Ann Primary Referrals: Care Physician,No Primary [Primary Care Provider] - Eddie Hollis, BRAULIO [Med Staff - [facility] Staff] - Elis Gill, CATTLE SPRAYER-C [[facility]] - Activity Restrictions/Additional Instructions: Follow-up with the slag expander Dr. Hollis. Follow-up with a primary care physician that you referred to as well. Return with worsening symptoms or any other concerns. Print Language: Citizen Of [place] Disposition Disposition: Home, Self Care
== END 2025-01-17 16:30 | disposition home or self-care (01) ==
PROVIDERS: Emergency Provider Emergency Medicine; Visit Provider Emergency Medicine
DX: L60.8 Other nail disorders (principal); Z87.891 Personal history of nicotine dependence
CPT/HCPCS: 99282